=== PATIENT | male | born 1960 | race Caucasian/White ===

== ENCOUNTER 2018-07-12 14:17 | Emergency (ER) | payer MEDICARE, OTHER ==
[~2018-07-12] VITALS: Ht 170.2 cm; Wt 59.9 kg
[2018-07-12] MEDS ORDERED: CARVEDILOL3.125 MG PO (15:08)
[2018-07-12] MEDS ORDERED: METFORMIN HCL500 MG PO (15:08)
[2018-07-12] MEDS ORDERED: GLIPIZIDE5 MG PO (15:09)
[2018-07-12] MEDS ORDERED: LEVOFLOXACIN750 MG PO (15:09)
[2018-07-12] MEDS ORDERED: ULTRAM50 MG PO (18:36)
--- OUTSIDE RECORDS SUMMARY | 2018-07-12 19:18 | XMS ---
PreManage Notification: TRES MOHR Security Milieu Technician Events No recent Security Events currently on file CRITERIA MET - [facility] - 2 Visits in 30 Days CARE PROVIDERS DOCTOR [facility] Current PHONE: Unknown TALHA PULLIAM Primary [facility] PHONE: Unknown Dariusz has no Care Guidelines for this patient. EDevaughn VISIT COUNT (12 MO.) 1 Talha Pulliam Denominational 1 [facility] 1 [facility] 1 [facility] Vincent Edgar 1 [facility] TOTAL 5 NOTE: Visits indicate total known visits. ED/UCC VISIT TRACKING (12 MO.) 07/12/2018 14:17 [facility] [place] TYPE: Emergency COMPLAINT: - ABD PAIN 07/08/2018 09:54 [facility] [place] TYPE: Emergency DIAGNOSES: 0. HIGH BLOOD SUGAR 11/27/2017 14:10 Talha Pulliam [facility] [place] TYPE: Emergency DIAGNOSES: - Chest pain, unspecified - Foot pain - Headache 11/22/2017 22:39 [facility] LIANNE Kurtz TYPE: Emergency DIAGNOSES: - Corns and callosities - Fever (9 Weeks To 74 Years) - Dehydration - Foot Pain - Abdominal Pain - Homeless - Cough - Type 2 diabetes mellitus with hyperglycemia 10/30/2017 13:50 [facility] Ap DANIEL TYPE: Emergency DIAGNOSES: - Pain in right ankle and joints of right foot - Disorientation, unspecified - Disorder of urea cycle metabolism, unspecified - High Blood Sugar (Symptomatic) - Hyperglycemia, unspecified - Hepatic failure, unspecified without coma - Homelessness - Unspecified abdominal pain INPATIENT VISIT TRACKING (12 MO.) No inpatient visits to display in this time frame [email or web address]
== END 2018-07-12 19:06 | disposition home or self-care (01) ==
LOC: ED 14:17
DX: R10.84 Generalized abdominal pain (principal); E11.9 Type 2 diabetes mellitus without complications; Z87.01 Personal history of pneumonia (recurrent); K74.60 Unspecified cirrhosis of liver; F17.200 Nicotine dependence, unspecified, uncomplicated; Z79.84 Long term (current) use of oral hypoglycemic drugs; Z79.899 Other long term (current) drug therapy
CPT/HCPCS: 74018; 80053; 81001; 85025; 99284

== ENCOUNTER 2019-08-28 18:19 | Emergency (ER) | payer MEDICARE, OTHER ==
[~2019-08-28] VITALS: Ht 170.2 cm; Wt 67.1 kg
[~2019-08-28 18:19] MED LIST: CARVEDILOL3.125 MG PO; GLIPIZIDE5 MG PO; LEVOFLOXACIN750 MG PO; MAVYRET 100-401 EACH PO; METFORMIN HCL500 MG PO; NICOTINE1 EAC2 TD; OMEPRAZOLE20 MG PO; ULTRAM50 MG PO
--- NOTE | 2019-08-29 11:01 | EKG ---
[facility] [address] [facility] [place], [place] [address] Signed Normal sinus rhythm with sinus arrhythmia Normal ECG No previous ECGs available Confirmed by LYLE KRUGER MD ([id number]) on 08/29/2019 11:00:56 AM Electronically Signed By: LYLE KRUGER MD 08/29/19 1101 PATIENT NAME: TRES MOHR Electrocardiogram DATE OF : 56 PHYSICIAN: LYLE KRUGER MD REPORT #: [id number] REPORT IS CONFIDENTIAL AND NOT TO BE RELEASED WITHOUT AUTHORIZATION
== END 2019-08-28 21:23 | disposition home or self-care (01) ==
LOC: ED 18:19
DX: R05 Cough (principal); R53.1 Weakness; E11.9 Type 2 diabetes mellitus without complications; Z87.01 Personal history of pneumonia (recurrent); K21.9 Gastro-esophageal reflux disease without esophagitis; F17.200 Nicotine dependence, unspecified, uncomplicated; Z79.899 Other long term (current) drug therapy; Z79.84 Long term (current) use of oral hypoglycemic drugs
CPT/HCPCS: 71045; 80053; 83735; 84484; 85025; 93005; 93010; 99285-25